=== PATIENT | male | born 1975 | race Asian ===

== ENCOUNTER 2022-03-24 08:37 | Emergency (ER) | payer OTHER ==
[2022-03-24] MEDS ORDERED: diazePAM CARPU-JECT 10 MG/2 ML DISP.SYRIN IVPUSH ONE (08:55)
[2022-03-24] MEDS ORDERED: ONDANSETRON 4 MG/2 ML VIAL IVPUSH ONE (08:55)
[2022-03-24] MEDS ORDERED: KETOROLAC TROMETHAMINE 15 MG/ML VIAL IVPUSH ONE (08:55)
[2022-03-24] MEDS ORDERED: SODIUM CHLORIDE 1,000 ML IV STA (08:55)
[2022-03-24 08:59] VITALS: BP 130/83; PULSE 58; RESP 16; TEMP 98.7; BMI 22.6
[2022-03-24] MEDS ORDERED: ONDANSETRON 4 MG/2 ML VIAL ONE (09:07)
[2022-03-24] MEDS ORDERED: diazePAM CARPU-JECT 10 MG/2 ML DISP.SYRIN ONE (09:08)
[2022-03-24] MEDS ORDERED: KETOROLAC TROMETHAMINE 15 MG/ML VIAL ONE (09:08)
[2022-03-24 09:58] LABS: BILIRUBIN,TOTAL 1.2 mg/dl (0.2-1); CALCIUM 9.2 mg/dl (8.5-10); CREATININE 1.1 mg/dl (0.55-1.3); TOT PROT 6.7 g/dl (6.4-8.2)
== END 2022-03-24 10:59 | disposition home or self-care (01) ==
LOC: FER 08:37
PROC: 3E033NZ Introduction of Analgesics, Hypnotics, Sedatives into Peripheral Vein, Percutaneous Approach (ICD-10-PCS; principal; 2022-03-24)
PROC: 3E033GC Introduction of Other Therapeutic Substance into Peripheral Vein, Percutaneous Approach (ICD-10-PCS; 2022-03-24)
PROC: 3E0333Z Introduction of Anti-inflammatory into Peripheral Vein, Percutaneous Approach (ICD-10-PCS; 2022-03-24)
PROC: 3E0337Z Introduction of Electrolytic and Water Balance Substance into Peripheral Vein, Percutaneous Approach (ICD-10-PCS; 2022-03-24)
DX: S86.112A Strain of other muscle(s) and tendon(s) of posterior muscle group at lower leg level, left leg, initial encounter (principal); R55 Syncope and collapse; X50.0XXA Overexertion from strenuous movement or load, initial encounter
CPT/HCPCS: 36415; 73590-TC-LT-FY; 80053; 82550; 82553; 93005; 99285-25